=== PATIENT | male | born 1975 | race African-American/Black ===

== ENCOUNTER 2021-09-02 12:55 | Inpatient (IN) | payer OTHER ==
[~2021-09-02] VITALS: Ht 193 cm; Wt 88.5 kg
[2021-09-02] MEDS ORDERED: LANTUS SOL100 UNIT/1 (13:11)
[2021-09-02] MEDS ORDERED: HUMALOG100 UNIT/2 (13:12)
[2021-09-06] MEDS ORDERED: Lantus 1000 UNITS/10 SUBCUTANEO (11:44)
[2021-09-06] MEDS ORDERED: HUMALOG100 UNIT/2 SUBCUTANEO (11:44)
== END 2021-09-06 12:13 | disposition home or self-care (01) | DRG 639 ==
LOC: ER 12:55 → ICU 17:35 → ICU-2 17:35 → ICU 09-03 05:59
PROVIDERS: ADMIT Internal Medicine; ATTEND Internal Medicine
PROC: 4A033R1 Measurement of Arterial Saturation, Peripheral, Percutaneous Approach (ICD-10-PCS; principal; 2021-09-02)
DX: E11.10 Type 2 diabetes mellitus with ketoacidosis without coma (principal); E86.0 Dehydration; E87.5 Hyperkalemia; Z79.4 Long term (current) use of insulin; Z03.818 Encounter for observation for suspected exposure to other biological agents ruled out